=== PATIENT | male | born 1930 | race African-American/Black ===

== ENCOUNTER 2017-09-28 09:05 | Emergency (ER) | payer MEDICARE ==
[~2017-09-28] VITALS: Ht 172.7 cm; Wt 68.0 kg
[2017-09-28] MEDS ORDERED: OMEPRAZOLE20 M2 ORAL (09:13)
[2017-09-28] MEDS ORDERED: LASIX80 MG ORAL (09:13)
[2017-09-28] MEDS ORDERED: ATORVASTATIN CA40 MG ORAL (09:13)
[2017-09-28] MEDS ORDERED: [UNRECOGNIZED DRUG - CODE] SUBQ (09:13)
[2017-09-28] MEDS ORDERED: ASPIR 8181 MG ORAL (09:13)
[2017-09-28 09:22] VITALS: BP 0/0
[2017-09-28 12:02] VITALS: BP 0/0
--- NOTE | 2017-09-28 14:35 | Emergency Room Report ---
History of Present Illness General Chief Complaint: CPR Source: EMS Present Illness HPI 87-year-old M presents to ED in cardiac arrest. EMS states that patient had a witnessed arrest at his [facility] this morning. Found unresponsive. Questionable aspiration. Patient had been given epinephrine x5 prior to arrival. Intubated. Initial rhythm upon arrival is PEA. Allergies: Coded Allergies: NSAIDS (NON-STEROIDAL ANTI-INFLAMMA (Verified Allergy, Unknown, 09/28/17) Patient History Past Medical History: HTN, renal disease Past Surgical History: none Pertinent Family History: none Social History: Denies: smoking, alcohol use, drug use Immunizations: UTD Reviewed Nursing Documentation: PMH: Agreed, PSxH: Agreed Nursing Documentation-PMH Hx Hypertension: Yes Hx Diabetes: Yes - CKD Review of Systems All Other Systems: limited Physical Exam Vital Signs Date Time Temp Pulse Resp B/P (MAP) Pulse Ox O2 Delivery O2 Flow Rate FiO2 09/28/17 09:02 0 0 0 Room Air 09/28/17 09:22 0/0 Sp02 EP Interpretation: abnormal General Appearance: other - non responsive Head: normocephalic Eyes: bilateral eye other - fixed ENT: normal ENT inspection Neck: normal inspection Respiratory: crackles, rhonchi, other - intubated Cardiovascular #1: other - no pulse Gastrointestinal: normal inspection Rectal: deferred Genitourinary: no CVA tenderness Musculoskeletal: normal inspection Neurologic: other - non responsive Psychiatric: other - nonresponsive Skin: normal inspection Lymphatic: normal inspection Procedures Critical Care Time Critical Care Time i. I feel this is a highly complex case requiring extensive working including EKG/Rhythm strip, Xray/CT/US, Blood/urine lab work, repeat exams while in ED, and administration of strong opiates/narcotics for pain control, admission to hospital or close patient follow up. Total time: 30 min bedside evaluation and treatment excludes procedures (EKG). Reason for critical care: Cardiac arrest Possible complications: hypotension, hypertension, CA, shock, arrhythmias, metabolic acidosis, end organ damage, respiratory failure. Interventions: Chest compressions, Accu-Chek, IV fluids, epinephrine x2, Course: Patient presented in cardiac arrest. Possible aspiration. Given epi x5 and bicarbonate by EMS. Initial rhythm PEA. Chest compressions continued. Given epi x2. Accu-Chek within normal limits. Chest compressions continued. patient remains in PEA. Prognosis is poor. Persistent efforts terminated. Patient expires Consultations: nursing staff, EMS, family Performed by: Dr Robb Tolerated well condition = expires j. because of unstable vital signs this patient had a condition that could potentially threaten life or limb. I feel this is a critical patient who required my full attention while patient was considered critical. Total Critical Care Time excluding procedures was greater than 35 minutes CPR/Code Blue CPR/Code Blue Narrative see code blue sheet for narrative Medical Decision Making Diagnostic Impression: Primary Impression: For cardiopulmonary resuscitation ER Course Patient presented in cardiac arrest. On witnessed arrest at [facility]. Possible aspiration Patient received epinephrine x5, bicarbonate times one by EMS prior to arrival Initial rhythm PEA; patient currently and PEA upon arrival Patient continued on compression. Accu-Chek within normal limits. Given epinephrine x2. Continued rhythm checks noted. After repeated resuscitative efforts patient remained in PEA. Prognosis is poor. Resuscitative efforts terminated patient I spoke to the patient's son regarding the patients expiration Last Vital Signs Date Time Temp Pulse Resp B/P (MAP) Pulse Ox O2 Delivery O2 Flow Rate FiO2 09/28/17 12:02 0 0 0/0 0 Room Air Status: worsened Disposition: Condition: Referrals: [facility] (PCP) GENARO ROBB M.D. Sep 28, 2017 14:35
== END 2017-09-28 12:05 | disposition expired ==
LOC: EDBD 09:05 → EMR 09:29
DX: I46.9 Cardiac arrest, cause unspecified (principal); I12.9 Hypertensive chronic kidney disease with stage 1 through stage 4 chronic kidney disease, or unspecified chronic kidney disease; N18.9 Chronic kidney disease, unspecified; E11.9 Type 2 diabetes mellitus without complications
CPT/HCPCS: 92950; 99291; J0171